=== PATIENT | female | born 1950 | race Asian ===

== ENCOUNTER 2016-07-20 10:12 | Outpatient (CLI) | payer BC | END 2016-07-20 23:40 | disposition home or self-care (01) | LOC: MAMMO 10:12 | DX: Z12.31 Encounter for screening mammogram for malignant neoplasm of breast (principal) | CPT/HCPCS: G0202-TC ==

== ENCOUNTER 2020-10-30 10:49 | Outpatient (CLI) | payer OTHER | END 2020-10-30 22:47 | disposition home or self-care (01) | LOC: RAD 10:49 | PROVIDERS: ATTEND Nurse Practitioner Family | DX: I10 Essential (primary) hypertension (principal); E78.49 Other hyperlipidemia; R73.03 Prediabetes; F41.8 Other specified anxiety disorders; M25.561 Pain in right knee ==